=== PATIENT | female | born 1950 | race Caucasian/White ===

== ENCOUNTER 2017-11-23 08:00 | Outpatient (CLI) | payer BC | END 2017-11-23 08:01 | disposition home or self-care (01) | LOC: BICMAMMO 08:00 | PROVIDERS: ATTEND Specialist | DX: Z12.31 Encounter for screening mammogram for malignant neoplasm of breast (principal) | CPT/HCPCS: 77063; 77067; G0202 ==

== ENCOUNTER 2018-11-24 11:51 | Outpatient (CLI) | payer BC, MEDICARE | END 2018-11-24 11:52 | disposition home or self-care (01) | LOC: BICMAMMO 11:51 | PROVIDERS: ATTEND Specialist | DX: Z12.31 Encounter for screening mammogram for malignant neoplasm of breast (principal); Z80.3 Family history of malignant neoplasm of breast | CPT/HCPCS: 77063; 77067 ==

== ENCOUNTER 2019-09-04 10:00 | Outpatient (CLI) | payer BC, MEDICARE ==
--- NOTE | 2019-09-04 10:29 | RAD ---
XR Chest Pa Lat STANDARD HISTORY: Cough and congestion. COMPARISON: 05/21/2014 study FINDINGS: Heart size is within normal limits. There are some atherosclerotic changes of the aorta. Li near interstitial change in the bases appears to be chronic in nature. IMPRESSION: No focal infiltrative process. Borderline heart size.
== END 2019-09-04 10:01 | disposition home or self-care (01) ==
LOC: BICRAD 10:00
PROVIDERS: ATTEND Specialist
DX: J98.9 Respiratory disorder, unspecified (principal); R05 Cough
CPT/HCPCS: 71046

== ENCOUNTER 2020-05-06 10:45 | Outpatient (CLI) | payer BC, MEDICARE ==
--- NOTE | 2020-05-06 11:35 | MMO ---
Bilateral MAMMO Bilat Screen [facility]. CLINICAL HISTORY: Patient is 69 years old and is seen for screening. The patient has the following family history of breast cancer: mother, at age 74, malignant (generic). The patient has no personal history of cancer. VIEWS: The views performed were: bilateral craniocaudal with tomosynthesis and bilateral mediolateral oblique with tomosynthesis. FILMS COMPARED: The present examination has been compared to prior imaging studies performed at [facility] on 11/10/2015, 11/18/2016, 11/23/2017 and 11/24/2018. This study has been interpreted with the assistance of computer-aided detection. MAMMOGRAM FINDINGS: There are scattered fibroglandular densities. There are stable benign appearing calcifications seen in both breasts. There are no suspicious masses, suspicious calcifications, or new areas of architectural distortion. IMPRESSION: THERE IS NO MAMMOGRAPHIC EVIDENCE OF MALIGNANCY. A ROUTINE FOLLOW-UP MAMMOGRAM IN 1 YEAR IS RECOMMENDED. THE RESULTS OF THIS EXAM WERE SENT TO THE PATIENT. ACR BI-RADS Category 2 - Benign finding MAMMOGRAPHY NOTE: 1. A negative mammogram report should not delay a biopsy if a dominant of clinically suspicious mass is present. 2. Approximately 10% to 15% of breast cancers are not detected by mammography. 3. Adenosis and dense breasts may obscure an underlying neoplasm. Reported by: JESI CUTLER MD Electonically Signed: [id number]
== END 2020-05-06 10:46 | disposition home or self-care (01) ==
LOC: BICMAMMO 10:45
PROVIDERS: ATTEND Specialist
DX: Z12.31 Encounter for screening mammogram for malignant neoplasm of breast (principal); Z80.3 Family history of malignant neoplasm of breast
CPT/HCPCS: 77063; 77067

== ENCOUNTER 2021-09-11 07:59 | Outpatient (CLI) | payer BC ==
[2021-09-11] MEDS ORDERED: Magnevist 469MG/ML 20 ML VIAL ONE (09:49)
== END 2021-09-11 08:00 | disposition home or self-care (01) ==
LOC: BICMRI 07:59
PROVIDERS: ATTEND Physician Assistant Medical
DX: R10.11 Right upper quadrant pain (principal); N28.1 Cyst of kidney, acquired
CPT/HCPCS: 74183; 82565; A9579

== ENCOUNTER 2021-11-13 20:51 | Observation (INO) | payer BC, MEDICARE ==
[~2021-11-13 20:51] MED LIST: Iopamidol-370 76% 500 ML 1 ML ONE
[2021-11-13] MEDS ORDERED: Morphine 4 MG/ML VIAL ONE (21:49)
[2021-11-13 21:59] LABS: #Eosinphils 0.3 thou/uL (0.0-0.7); #Monocytes 0.8 thou/uL (0.11-0.59); #Neutrophils 5.9 thou/uL (1.40-6.50); %Basophils 0.4 % (0.0-1.0); %Eosinophils 2.4 % (0.0-10.0); %Lymphocytes 36.4 % (21.0-51.0); %Monocytes 7.3 % (0.0-10.0); %Neutrophils 53.6 % (42.0-75.0); Hemoglobin 14.2 g/dL (12.0-16.0); Mean Corpuscular HGB CONC 32.9 g/dL (32.0-36.0); Mean Corpuscular Hemoglobin 30.8 pg (27.0-31.0); Mean Corpuscular Volume 93.4 fL (78.0-98.0); Mean Platelet Volume 6.1 fL (7.4-10.4); Platelet Count 356 thou/uL (130-400); RBC Distribution Width 12.7 % (11.5-14.5); Red Blood Cell (RBC) Count 4.62 mill/uL (4.20-5.40); White Blood Cell (WBC) Count 11.1 thou/uL (4.8-10.8)
[2021-11-13 22:31] LABS: ALT (SGPT) 21 U/L (8-55); AST (SGOT) 26 U/L (5-34); Albumin 3.6 g/dL (3.4-4.8); Alkaline Phosphatase 73 U/L (40-110); Anion Gap 12 mmol/L (10-20); Bilirubin, Total 0.4 mg/dL (0.2-1.2); Calc. Creatinine Clearance 0 mL/min (70-130); Calcium 8.9 mg/dL (7.8-10.44); Carbon Dioxide 26 mmol/L (23-31); Chloride 106 mmol/L (98-107); Globulin 2.9 g/dL (2.4-3.5); Glucose 92 mg/dL (83-110); Lipase 20 U/L (8-78); Potassium 4.2 mmol/L (3.5-5.1); Protein, Total 6.5 g/dL (5.8-8.1); Sodium 140 mmol/L (136-145)
[2021-11-14 00:07] LABS: BUN (Urea Nitrogen) 11 mg/dL (9.8-20.1)
[2021-11-14] MEDS ORDERED: Aspirin Chewable 81 MG TAB ONE (00:58)
[2021-11-14] MEDS ORDERED: Morphine 4 MG/ML VIAL SLOW IVP PRN (01:23)
[2021-11-14 01:25] LABS: SARS-CoV-2 NAA Rapid Test Not Detected (NotDetected)
[2021-11-14 01:32] VITALS: BMI 34.0
[2021-11-14 02:27] LABS: Troponin I Less than 0.010 ng/mL (< 0.028)
[2021-11-14 04:42] LABS: Troponin I Less than 0.010 ng/mL (< 0.028)
[2021-11-14] MEDS ORDERED: ADENOSINE 60 MG/20 ML VIAL ONE (08:22)
[2021-11-14] MEDS ORDERED: FLU VACC QS2021-22(65YR UP)/PF 240 MCG/0.7 ML SYRINGE IM ONE (09:00)
[2021-11-14] MEDS ORDERED: Aspirin 325 MG TAB PO SCH (09:00)
[2021-11-14] MEDS ORDERED: Acetaminophen 325 MG TAB PO PRN (10:23)
[2021-11-14] MEDS ORDERED: Nitroglycerin 0.4 MG TAB (25 Tab Bottle) SL PRN (10:23)
[2021-11-14] MEDS ORDERED: Ondansetron PF 4 MG/2 ML Vial IVP PRN (10:26)
[2021-11-14] MEDS: Atorvastatin Calcium 20 MG TAB PO SCH (21:13)
[2021-11-14] MEDS: ALPRAZolam 0.25 MG TAB PO SCH (21:13)
[2021-11-15 05:17] LABS: #Eosinphils 0.3 thou/uL (0.0-0.7); #Lymphocytes 2.7 thou/uL (1.20-3.40); #Monocytes 0.7 thou/uL (0.11-0.59); %Basophils 0.3 % (0.0-1.0); %Eosinophils 3.1 % (0.0-10.0); %Lymphocytes 30.8 % (21.0-51.0); %Neutrophils 57.8 % (42.0-75.0); Hemoglobin 13.5 g/dL (12.0-16.0); Mean Corpuscular HGB CONC 31.9 g/dL (32.0-36.0); Mean Corpuscular Hemoglobin 30.2 pg (27.0-31.0); Mean Corpuscular Volume 94.9 fL (78.0-98.0); Platelet Count 327 thou/uL (130-400); RBC Distribution Width 12.6 % (11.5-14.5); Red Blood Cell (RBC) Count 4.46 mill/uL (4.20-5.40); White Blood Cell (WBC) Count 8.7 thou/uL (4.8-10.8)
[2021-11-15 05:22] LABS: Hemoglobin A1c 6.8 % (4.0-6.0)
[2021-11-15 05:38] LABS: Anion Gap 9 mmol/L (10-20); BUN (Urea Nitrogen) 12 mg/dL (9.8-20.1); Calc. Creatinine Clearance 92 mL/min (70-130); Calcium 8.7 mg/dL (7.8-10.44); Carbon Dioxide 29 mmol/L (23-31); Cardiac Risk 3.5 (Less than 4.5); Chloride 108 mmol/L (98-107); Cholesterol 138 mg/dl (< 200 Desired); Glucose 120 mg/dL (83-110); HDL Cholesterol 39 mg/dL (>60 Neg Risk); LDL Cholesterol, Calculated 75 mg/dL; Sodium 142 mmol/L (136-145); Triglycerides 119 mg/dL (Less than 150)
[2021-11-15] MEDS: Escitalopram Oxalate 20 mg Tablet PO SCH (08:17)
[2021-11-15] MEDS: Lisinopril 2.5 MG TAB PO SCH (08:17)
[2021-11-15] MEDS: Aspirin 325 MG TAB PO SCH (08:18)
[2021-11-15] MEDS: Fenofibrate 48 MG TAB PO SCH (08:18)
[2021-11-15] MEDS: ALPRAZolam 0.25 MG TAB PO SCH ×2 (08:19→20:01)
[2021-11-15] MEDS ORDERED: Dextrose 50% Abboject 50 ML SYRINGE IVP PRN (09:45)
[2021-11-15] MEDS ORDERED: Insulin Regular 300 UNITS/3 ML VIAL SC PRN (09:45)
[2021-11-15] MEDS ORDERED: Dextrose 5% in Water 1,000 ML IV PRN (09:45)
[2021-11-15] MEDS ORDERED: Communication Order-Pharmacy FS SCH (12:15)
[2021-11-15] MEDS: Atorvastatin Calcium 20 MG TAB PO SCH (20:01)
[2021-11-16] MEDS ORDERED: Sodium Chloride 0.9% 1,000 ML IV SCH (00:01)
[2021-11-16] MEDS: Aspirin 325 MG TAB PO SCH (05:43)
[2021-11-16] MEDS: Fenofibrate 48 MG TAB PO SCH (05:43)
[2021-11-16] MEDS: ALPRAZolam 0.25 MG TAB PO SCH (05:43)
[2021-11-16] MEDS: Escitalopram Oxalate 20 mg Tablet PO SCH (05:43)
[2021-11-16] MEDS: Lisinopril 2.5 MG TAB PO SCH (05:43)
[2021-11-16] MEDS ORDERED: Empagliflozin 10 MG TAB PO SCH (09:00)
[2021-11-16] MEDS ORDERED: Nitroglycerin 100MG/250ML BOT 250 ML ONE (11:45)
[2021-11-16] MEDS ORDERED: Midazolam HCl 2 mg/2 ml Vial ONE (11:45)
[2021-11-16] MEDS ORDERED: Heparin 10,000 UNITS/ 10 ML VIAL ONE (11:45)
[2021-11-16] MEDS ORDERED: Verapamil 5 MG/2 ML VIAL ONE (11:45)
[2021-11-16] MEDS ORDERED: Fentanyl 100 MCG/2 ML VIAL ONE (11:45)
[2021-11-16] MEDS ORDERED: Iopamidol 370 76% 100 ML VIAL ONE (11:58)
[2021-11-16] MEDS ORDERED: Sodium Chloride 0.9% 200 ML IV PRN (12:43)
[2021-11-16] MEDS ORDERED: Acetaminophen/Codeine 30-300mg Tablet PO PRN ×2 (12:43)
[2021-11-16] MEDS ORDERED: Nitroglycerin 0.4 MG TAB (25 Tab Bottle) SL PRN (12:43)
[2021-11-16 17:05] VITALS: BP 110/56; TEMP 98
== END 2021-11-16 19:02 | disposition home or self-care (01) ==
LOC: ERS 20:51 → 2SW 23:58
PROVIDERS: ADMIT Specialist; ATTEND Specialist
PROC: 4A023N7 Measurement of Cardiac Sampling and Pressure, Left Heart, Percutaneous Approach (ICD-10-PCS; principal; 2021-11-16)
PROC: B2111ZZ Fluoroscopy of Multiple Coronary Arteries using Low Osmolar Contrast (ICD-10-PCS; 2021-11-16)
DX: R07.89 Other chest pain (principal); E11.9 Type 2 diabetes mellitus without complications; E78.1 Pure hyperglyceridemia; I10 Essential (primary) hypertension; F17.210 Nicotine dependence, cigarettes, uncomplicated; I08.8 Other rheumatic multiple valve diseases; E78.00 Pure hypercholesterolemia, unspecified; E66.9 Obesity, unspecified; Z68.34 Body mass index [BMI] 34.0-34.9, adult; Z79.82 Long term (current) use of aspirin; Z79.899 Other long term (current) drug therapy; Z88.5 Allergy status to narcotic agent; Z20.822 Contact with and (suspected) exposure to COVID-19
CPT/HCPCS: 36415; 36416; 71045; 71275; 74174; 78452; 80048; 80053; 80061; 83036; 83690; 83880; 84484; 85025; 85379; 85652; 86140; 90471; 90662; 90732; 93005; 93010; 93017; 93306; 93458; 96374; 99152; A9500; G0008; G0009; G0378; J0153; J1644; J2250; J2270; J3010; J7050; Q9967; U0002

== ENCOUNTER 2023-12-02 09:52 | Outpatient (CLI) | payer MEDICARE, OTHER | END 2023-12-02 09:53 | disposition home or self-care (01) | LOC: BICMAMMO 09:52 | PROVIDERS: ATTEND Specialist | DX: Z12.31 Encounter for screening mammogram for malignant neoplasm of breast (principal) | CPT/HCPCS: 77063; 77067 ==

== ENCOUNTER 2025-06-25 12:17 | Outpatient (CLI) | payer MEDICARE ==
[2025-06-25 13:22] LABS: #Basophils 0.05 10x3/uL (0.0-0.2); #Eosinophils 0.50 10x3/uL (0.0-0.7); #Monocytes 0.77 10x3/uL (0.11-0.59); #Neutrophils 5.73 10x3/uL (1.40-6.50); %Basophils 0.5 % (0.0-1.0); %Eosinophils 4.6 % (0.0-10.0); %Lymphocytes 34.4 % (21.0-51.0); %Monocytes 7.1 % (0.0-10.0); %Neutrophils 53.0 % (42.0-75.0); Hematocrit 44.4 % (36.0-47.0); Hemoglobin 14.7 g/dL (12.0-16.0); Mean Corpuscular Hemoglobin 30.1 pg (27.0-31.0); Mean Corpuscular Volume 91.0 fL (78.0-98.0); Platelet Count 323 10x3/uL (130-400); Red Blood Cell (RBC) Count 4.88 mill/uL (4.20-5.40); White Blood Cell (WBC) Count 10.80 10x3/uL (4.8-10.8)
[2025-06-25 13:49] LABS: Anion Gap 15 mmol/L (10-20); BUN (Urea Nitrogen) 12 mg/dL (9.8-20.1); Calc. Creatinine Clearance 0 mL/min (70-130); Calcium 9.5 mg/dL (7.8-10.44); Carbon Dioxide 25 mmol/L (23-31); Chloride 105 mmol/L (98-107); Glucose 92 mg/dL (83-110); Potassium 4.0 mmol/L (3.5-5.1); Sodium 141 mmol/L (136-145)
== END 2025-06-25 12:18 | disposition home or self-care (01) ==
LOC: LABBT 12:17
PROVIDERS: ATTEND Orthopaedic Surgery Hand Surgery
DX: Z01.818 Encounter for other preprocedural examination (principal); G56.01 Carpal tunnel syndrome, right upper limb; G56.21 Lesion of ulnar nerve, right upper limb; G56.11 Other lesions of median nerve, right upper limb
CPT/HCPCS: 80048; 85025

== ENCOUNTER 2025-06-28 06:29 | Day surgery (SDC) | payer MEDICARE ==
[2025-06-25 12:33] VITALS: BMI 29.8
[2025-06-28] MEDS ORDERED: PROPOFOL 20 ML ONE (08:02)
[2025-06-28] MEDS ORDERED: fentaNYL PF 100 MCG/2 ML SYRINGE ONE (08:02)
[2025-06-28] MEDS ORDERED: Ondansetron PF 4 MG/2 ML Vial ONE (08:02)
[2025-06-28] MEDS ORDERED: Lidocaine 1% PF 5 ML VIAL ONE (08:02)
[2025-06-28] MEDS ORDERED: Ropivacaine 0.5% HCl/PF (150 MG/30 ML VIAL) ONE (09:01)
[2025-06-28] MEDS ORDERED: CEFAZOLIN 2 GM VIAL ONE (09:09)
[2025-06-28] MEDS ORDERED: Albuterol HFA (OR) 200 PUFF INH ONE ×2 (09:10→14:57)
[2025-06-28] MEDS ORDERED: Ropivacaine 2% HCl/PF (20 MG/10 ML VIAL) ONE (09:10)
== END 2025-06-28 15:25 | disposition home or self-care (01) ==
LOC: SDC 06:29
PROVIDERS: ATTEND Orthopaedic Surgery Hand Surgery
PROC: 01N50ZZ Release Median Nerve, Open Approach (ICD-10-PCS; principal; 2025-06-28)
DX: G56.01 Carpal tunnel syndrome, right upper limb (principal); G56.21 Lesion of ulnar nerve, right upper limb; I10 Essential (primary) hypertension; E11.9 Type 2 diabetes mellitus without complications; E78.00 Pure hypercholesterolemia, unspecified; Z79.899 Other long term (current) drug therapy; Z79.85 Long-term (current) use of injectable non-insulin antidiabetic drugs; Z79.82 Long term (current) use of aspirin; Z88.5 Allergy status to narcotic agent
CPT/HCPCS: 64718; 64721; A6223; J0702; J1100; J2405; J2704; J2795 ×2; J3010

== ENCOUNTER 2025-09-12 16:57 | Emergency (ER) | payer MEDICARE ==
[2025-09-12] MEDS ORDERED: Ketorolac Tromethamine 30 MG (1 mL) VIAL ONE (18:18)
[2025-09-12 18:30] LABS: #Basophils 0.05 10x3/uL (0.0-0.2); #Eosinophils 0.21 10x3/uL (0.0-0.7); #Monocytes 0.73 10x3/uL (0.11-0.59); #Neutrophils 6.05 10x3/uL (1.40-6.50); %Basophils 0.4 % (0.0-1.0); %Eosinophils 1.8 % (0.0-10.0); %Lymphocytes 38.3 % (21.0-51.0); %Monocytes 6.4 % (0.0-10.0); %Neutrophils 52.8 % (42.0-75.0); Hematocrit 47.5 % (36.0-47.0); Hemoglobin 15.8 g/dL (12.0-16.0); Mean Corpuscular Hemoglobin 30.2 pg (27.0-31.0); Mean Corpuscular Volume 90.6 fL (78.0-98.0); Platelet Count 353 10x3/uL (130-400); Red Blood Cell (RBC) Count 5.24 mill/uL (4.20-5.40); White Blood Cell (WBC) Count 11.45 10x3/uL (4.8-10.8)
[2025-09-12 18:32] LABS: BHCG - Serum Negative (NEGATIVE); Pregs Control Background? CLEAR/WHITE (CLR/WHITE); Pregs Control Bar Appear? YES (CONTROL BAR)
[2025-09-12 18:43] LABS: INR-International Normal Ratio 1.0; PTT 26.3 sec (22.9-36.1); Prothrombin Time 13.0 sec (12.0-14.7)
[2025-09-12 18:46] LABS: ALT (SGPT) 13 U/L (Less than 34); AST (SGOT) 35 U/L (11-34); Albumin 4.4 g/dL (3.1-4.5); Alkaline Phosphatase 57 U/L (40-110); Anion Gap 11 mmol/L (10-20); BUN (Urea Nitrogen) 13 mg/dL (9.8-20.1); Bilirubin, Total 0.5 mg/dL (0.3-1.2); Calc. Creatinine Clearance 0 mL/min (70-130); Calcium 10.2 mg/dL (7.8-10.44); Carbon Dioxide 29 mmol/L (23-31); Chloride 105 mmol/L (98-107); Globulin 3.1 g/dL (2.4-3.5); Glucose 82 mg/dL (83-110); Potassium 4.0 mmol/L (3.5-5.1); Sodium 141 mmol/L (136-145)
[2025-09-12 18:55] LABS: Bacteria/HPF None Seen HPF (None Seen); CAUTI Indications for Culture Pelvic or flank pain; Glucose, Urine (Dipstick) Normal (Negative); Leukocyte Negative Leu/uL (Negative); Protein, Urine (Dipstick) Negative (Neg-Trace); RBC/HPF 0-3 HPF (0-3); Specific Gravity, Urine 1.005 (1.002-1.036); WBC/HPF 0-3 HPF (0-3)
[2025-09-12 19:00] LABS: Urine Culture Reflex No No
== END 2025-09-12 21:40 | disposition home or self-care (01) ==
LOC: ERS 16:57
DX: M79.601 Pain in right arm (principal); R60.0 Localized edema; E11.9 Type 2 diabetes mellitus without complications; I10 Essential (primary) hypertension; F17.210 Nicotine dependence, cigarettes, uncomplicated
CPT/HCPCS: 80053; 81001; 84484; 84703; 85025; 85610; 85730; 93005; 93971; J1885; 96374